=== PATIENT | female | born 1985 | race Two or more races ===

== ENCOUNTER 2019-12-08 21:51 | Inpatient (IN) | payer MEDICAID ==
[~2019-12-08] VITALS: Ht 170.2 cm; Wt 142.1 kg
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
[2019-12-08] MEDS ORDERED: HYDROmorphone 1 MG/ML, 1ML INJ IVPush PRN (22:00)
[2019-12-08] MEDS ORDERED: ONDANSETRON 2MG/ML, 2ML IVPush ONE (22:00)
[2019-12-08] MEDS ORDERED: ONDANSETRON 2MG/ML, 2ML ONE (22:11)
[2019-12-08] MEDS ORDERED: HYDROmorphone 1 MG/ML, 1ML INJ ONE (22:11)
--- NOTE | 2019-12-08 22:17 | NUR ---
PT MEDICATED NOTED IN [facility] PER MD ORDER FOR 10/10 RUE PAIN. PT POSITIONED FOR COMFORT WITH RUE SUPPORTED WITH PILLOWS AND SLING. ICE PACK APPLIED. CMS INTACT. VSS. FALL PRECUATIONS IN PLACE. CALL LIGHT IN REACH. DENIES NEED TO USE RESTROOM.
[2019-12-08] MEDS ORDERED: ONDANSETRON 2MG/ML, 2ML IVPush PRN (22:30)
--- NOTE | 2019-12-08 22:35 | NUR ---
PT REPORTS PAIN IMPROVED TO 4-5/10, "THE ICE AND POSITIONING ARE WONDERFUL, SO MUCH BETTER, I FEEL MORE RELAXED, IMMEDIATE RELIEF." VSS. CALL LIGHT IN REACH
--- NOTE | 2019-12-08 22:58 | NUR ---
PREMA CISNEROS AND NERY ATTEMPTED TO SPLIN PT'S ARM PER DR. MAHONEY ORDER, PT UNABLE TO TOLERATE SPLINTING. DR. MAHONEY AT BEDSIDE, AWARE. SLING TO REMAIN IN PLACE WITH PILLOWS AND ICE FOR COMFORT PER PT REQUEST.
--- NOTE | 2019-12-08 23:09 | NUR ---
ROOM 454 RECEIVED, PHONE/VERBAL REPORT CALLED TO YAMILETH SOUZA AT THIS TIME. PT READY FOR TRANSPORT. CMS AND NEURO INTACT. VSS. PAIN CONTROLLED PER PT.
[2019-12-08 23:53] VITALS: BP 117/76
[2019-12-09] MEDS: NS + 20MEQ KCL 1,000 ML IV SCH ×4 (00:31→17:05)
[2019-12-09 02:24] VITALS: BP 136/88
[2019-12-09] MEDS: HYDROmorphone 1 MG/ML, 1ML INJ IVPush PRN ×2 (02:26→08:22)
[2019-12-09 06:35] VITALS: BP 123/85
[2019-12-09] MEDS ORDERED: ONDANSETRON 2MG/ML, 2ML IVPush PRN (09:00)
[2019-12-09 14:24] VITALS: BP 119/77
[2019-12-09] MEDS: HYDROmorphone 1 MG/ML, 1ML INJ IV PRN ×2 (14:27→20:33)
[2019-12-09 19:04] VITALS: BP 122/85
[2019-12-10] MEDS: HYDROmorphone 1 MG/ML, 1ML INJ IV PRN ×4 (00:02→13:57)
[2019-12-10] MEDS: NS + 20MEQ KCL 1,000 ML IV SCH ×2 (00:47→08:51)
[2019-12-10 02:35] VITALS: BP 142/85
[2019-12-10 06:31] VITALS: BP 128/73
[2019-12-10] MEDS ORDERED: BACITRACIN 50,000 UNIT ONE (09:14)
[2019-12-10] MEDS ORDERED: BUPIVACAINE/PF-EPI 0.5% 1:200K ONE (09:14)
[2019-12-10] MEDS ORDERED: HYDROmorphone 2 MG/ML, 1ML IVPush PRN (09:30)
[2019-12-10] MEDS ORDERED: OXYcodone 5 MG/5 ML ORAL.SOL UDC PO PRN (09:30)
[2019-12-10] MEDS ORDERED: MEPERIDINE/PF 25MG/ML,1ML IVPush PRN (09:30)
[2019-12-10] MEDS ORDERED: HALOPERIDOL 5 MG/ML IV PRN (09:30)
[2019-12-10] MEDS ORDERED: LABETALOL 5MG/ML, 20ML IV PRN (09:30)
[2019-12-10] MEDS ORDERED: GABAPENTIN 300 MG CAPSULE PO ONE (09:30)
[2019-12-10] MEDS ORDERED: ACETAMINOPHEN 500 MG TABLET PO ONE (09:30)
[2019-12-10] MEDS ORDERED: CHLORHEXIDINE 15 ML UDC MM ONE (09:30)
[2019-12-10] MEDS ORDERED: PROMETHAZINE 25 MG/ML, 1ML IV PRN (09:30)
[2019-12-10] MEDS ORDERED: FENTANYL PF 250 MCG/5ML ONE (10:09)
[2019-12-10] MEDS ORDERED: MIDAZOLAM 1 MG/ML, 2ML ONE (10:09)
[2019-12-10] MEDS ORDERED: FENTANYL PF 100 MCG/2ML ONE (11:49)
[2019-12-10] MEDS ORDERED: MEPERIDINE/PF 25MG/ML,1ML ONE (11:49)
[2019-12-10] MEDS: FENTANYL PF 100 MCG/2ML IV PRN ×2 (11:50→12:14)
[2019-12-10] MEDS ORDERED: OXYcodone 5 MG/5 ML ORAL.SOL UDC ONE (11:50)
[2019-12-10] MEDS ORDERED: PROMETHAZINE 25 MG/ML, 1ML ONE (11:55)
[2019-12-10] MEDS ORDERED: HYDROmorphone 1 MG/ML, 1ML INJ ONE (12:23)
[2019-12-10] MEDS ORDERED: hydrALAzine 20 MG/ML, 1ML ONE (12:32)
[2019-12-10] MEDS: hydrALAzine 20 MG/ML, 1ML IV PRN ×2 (12:35→13:15)
[2019-12-10 14:00] VITALS: BP 117/81
[2019-12-10] MEDS ORDERED: OXYC-302 PO (15:31)
== END 2019-12-10 17:00 | disposition home or self-care (01) | DRG 315 ==
LOC: ED 23:00 → EDIP 23:48 → 4NE 23:49
PROVIDERS: ADMIT Orthopaedic Surgery; ATTEND Orthopaedic Surgery
PROC: 2W3CX1Z Immobilization of Right Lower Arm using Splint (ICD-10-PCS; 2019-12-08)
PROC: 0PSF04Z Reposition Right Humeral Shaft with Internal Fixation Device, Open Approach (ICD-10-PCS; principal; 2019-12-10 09:15)
DX: S42.351A Displaced comminuted fracture of shaft of humerus, right arm, initial encounter for closed fracture (principal); E66.01 Morbid (severe) obesity due to excess calories; Z68.42 Body mass index [BMI] 45.0-49.9, adult; V89.2XXA Person injured in unspecified motor-vehicle accident, traffic, initial encounter; Y93.89 Activity, other specified; Y92.89 Other specified places as the place of occurrence of the external cause; Y99.8 Other external cause status
CPT/HCPCS: 29105; 76000; 81025; 96374; 96375; C1713; G0378; J1170; J2250; J2405; J2550; J3010; J3480; J0360